=== PATIENT | female | born 1940 | race Caucasian/White ===

== ENCOUNTER 2017-08-29 22:01 | Inpatient (IN) | payer OTHER ==
[~2017-08-29] VITALS: Ht 157.5 cm; Wt 67.7 kg
[~2017-08-29 22:01] MED LIST: ATI0.5 PO; DIG125 PO; MET2.5 PO; PLA200; PLA200 PO; PRE10 PO; REG10 PO; SYN5 PO; ZYL300 PO
[2017-08-29 22:45] LABS: PLATELET COUNT 298 x10^3mcL (130-400)
[2017-08-29 22:48] LABS: BASOPHIL % 0 % (0-2); RED CELL DISTRIBUTION WIDTH 15.1 % (11.5-14.5)
[2017-08-29 22:53] LABS: CALCIUM 9.2 mg/dL (8.5-10.1); CARBON DIOXIDE 23.1 mmol/L (21-32); CHLORIDE SERUM 101 mmol/L (98-107); CREATININE SERUM 1.3 mg/dL (0.6-1.0); GLUCOSE SERUM 151 mg/dL (74-106); POTASSIUM SERUM 3.8 mmol/L (3.5-5.1); SODIUM SERUM 138 mmol/L (136-145)
[2017-08-29 22:54] LABS: UA SPECIFIC GRAVITY >=1.030 (1.005-1.035); microscopic required? YES; urine erythrocyte 1+ (NEGATIVE)
[2017-08-29 23:00] LABS: ALBUMIN 3.4 g/dL (3.4-5.0); ALKALINE PHOSPHATASE 114 U/L (46-116); ALT/SGPT 51 U/L (14-59); AST/SGOT 36 U/L (15-37); BILIRUBIN TOTAL 0.3 mg/dL (0.20-1.00); HDL CHOLESTEROL 35 mg/dL (40-60); LIPASE 52 IU/L (73-393); TOTAL PROTEIN, SERUM 8.1 g/dL (6.4-8.2)
[2017-08-29 23:04] LABS: CHOLESTEROL 215 mg/dL (<200)
[2017-08-30] VITALS (9 sets, daily range): BP systolic 138–171; BP diastolic 64–96; Ht 157.5 cm; Wt 67.7 kg
[2017-08-30 01:35] LABS: CHOLESTEROL/HDL RATIO 5.6; PHOSPHOROUS 2.7 mg/dL (2.5-4.9)
[2017-08-30 01:44] LABS: FREE T4 1.41 ng/dL (0.76-1.46); T4(THYROXINE) 10.9 ug/dL (4.7-13.3)
[2017-08-30 02:02] LABS: T3 TOTAL 0.85 ng/mL
[2017-08-30 06:47] LABS: CALCIUM 7.7 mg/dL (8.5-10.1); CARBON DIOXIDE 26.2 mmol/L (21-32); CHLORIDE SERUM 107 mmol/L (98-107); GLUCOSE SERUM 120 mg/dL (74-106); MAGNESIUM 1.8 mg/dL (1.8-2.4); PHOSPHOROUS 2.7 mg/dL (2.5-4.9); POTASSIUM SERUM 4.2 mmol/L (3.5-5.1); SODIUM SERUM 142 mmol/L (136-145)
[2017-08-30 06:50] LABS: BASOPHIL % 0.2 % (0-2); PLATELET COUNT 249 x10^3mcL (130-400)
[2017-08-30 07:06] LABS: RED CELL DISTRIBUTION WIDTH 14.7 % (11.5-14.5)
[2017-08-31 05:48] VITALS: BP 135/65
[2017-08-31 07:16] LABS: BASOPHIL % 0.2 % (0-2); PLATELET COUNT 202 x10^3mcL (130-400)
[2017-08-31 07:41] LABS: CALCIUM 7.4 mg/dL (8.5-10.1); CARBON DIOXIDE 22.7 mmol/L (21-32); CHLORIDE SERUM 111 mmol/L (98-107); CREATININE SERUM 0.9 mg/dL (0.6-1.0); GLUCOSE SERUM 82 mg/dL (74-106); MAGNESIUM 1.9 mg/dL (1.8-2.4); PHOSPHOROUS 2.2 mg/dL (2.5-4.9); POTASSIUM SERUM 3.4 mmol/L (3.5-5.1); SODIUM SERUM 143 mmol/L (136-145)
[2017-08-31 07:42] LABS: RED CELL DISTRIBUTION WIDTH 14.6 % (11.5-14.5)
[2017-08-31 09:45] VITALS: BP 176/75
[2017-08-31 13:45] VITALS: BP 167/80
[2017-08-31 18:28] VITALS: BP 169/78
[2017-08-31 21:57] VITALS: BP 171/84
[2017-09-01 05:42] VITALS: BP 176/83
[2017-09-01] MEDS ORDERED: LEVAQUIN750 MG PO (06:29)
[2017-09-01] MEDS ORDERED: LAC PO (06:30)
[2017-09-01 07:13] LABS: BASOPHIL % 0.2 % (0-2); CALCIUM 7.9 mg/dL (8.5-10.1); CARBON DIOXIDE 23.6 mmol/L (21-32); CHLORIDE SERUM 111 mmol/L (98-107); GLUCOSE SERUM 84 mg/dL (74-106); MAGNESIUM 1.9 mg/dL (1.8-2.4); PHOSPHOROUS 2.1 mg/dL (2.5-4.9); PLATELET COUNT 225 x10^3mcL (130-400); POTASSIUM SERUM 3.8 mmol/L (3.5-5.1); SODIUM SERUM 143 mmol/L (136-145)
[2017-09-01 07:14] LABS: RED CELL DISTRIBUTION WIDTH 14.7 % (11.5-14.5)
[2017-09-01 09:32] VITALS: BP 144/77
[2017-09-01 13:40] VITALS: BP 158/77
[2017-09-01 15:25] VITALS: BP 158/77
== END 2017-09-01 18:00 | disposition home or self-care (01) | DRG 871 ==
LOC: ED 22:01 → DU 23:56
PROVIDERS: Emergency Medicine; Family Medicine; Student in an Organized Health Care Education/Training Program
DX: A41.9 Sepsis, unspecified organism (principal); N17.0 Acute kidney failure with tubular necrosis; N13.6 Pyonephrosis; M48.56XA Collapsed vertebra, not elsewhere classified, lumbar region, initial encounter for fracture; J44.9 Chronic obstructive pulmonary disease, unspecified; E78.5 Hyperlipidemia, unspecified; E11.65 Type 2 diabetes mellitus with hyperglycemia; E11.51 Type 2 diabetes mellitus with diabetic peripheral angiopathy without gangrene; M06.9 Rheumatoid arthritis, unspecified; E03.9 Hypothyroidism, unspecified; M79.7 Fibromyalgia; I50.9 Heart failure, unspecified; R65.20 Severe sepsis without septic shock; E66.9 Obesity, unspecified; E87.6 Hypokalemia; E83.39 Other disorders of phosphorus metabolism; Z68.30 Body mass index [BMI] 30.0-30.9, adult; Z23 Encounter for immunization
CPT/HCPCS: 82962; 83880; 84439; 94150; J0360; J1956; J2270; J2405; J7030; Q0092